=== PATIENT | male | born 1990 | race Caucasian/White ===

== ENCOUNTER 2019-05-03 07:20 | Emergency (ER) | payer OTHER ==
[2019-05-03 07:26] VITALS: BP 154/85; PULSE 73; RESP 18; TEMP 99.1
[2019-05-03] MEDS ORDERED: DIPH,PERTUS(ACELL)TETVAC-LF 0.5 ML VIAL IM ONE (07:32)
[2019-05-03] MEDS ORDERED: HYDROmorphone 1 MG/ML 1 ML SYRINGE IVP STA ×2 (07:32→08:27)
[2019-05-03] MEDS ORDERED: ONDANSETRON 4 MG/2 ML VIAL IVP STA (07:32)
[2019-05-03] MEDS ORDERED: ceFAZolin IN SWFI 2 GM/20 ML SYRINGE IVP STA (07:34)
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
== END 2019-05-03 10:09 | disposition other institution (70) ==
LOC: EC 07:20
DX: S51.802A Unspecified open wound of left forearm, initial encounter (principal); Z91.018 Allergy to other foods; Z23 Encounter for immunization; V69.9XXA Occupant (driver) (passenger) of heavy transport vehicle injured in unspecified traffic accident, initial encounter; Y92.410 Unspecified street and highway as the place of occurrence of the external cause
CPT/HCPCS: 73090; 90715; 99285; 96374; 96375 ×2; 96376; 90471; J2405; J1170; J0690